=== PATIENT | male | born 1940 | race Caucasian/White ===

== ENCOUNTER → 2017-05-24 | Day surgery (SDC) | payer OTHER ==
[~2017-05-24] MED LIST: BUPIVACAINE/EPINEPHRINE 0.25% 50 ML VIAL ONE; DEXAMETHASONE SOD PHOS 4 MG/ML VIAL IV ONE; ISOSULFAN BLUE 50 MG/5 ML VIAL SQ ONE; LACTATED RINGER'S 1000 ML INJ 1,000 ML ONE; MIDAZOLAM HCL 2 MG/2 ML VIAL ONE; PROPOFOL 200 MG/20 ML AMP IV ONE; ceFAZolin 2 GM PREMIX 50 ML ONE
--- NOTE | 2017-05-24 12:21 | TN ---
cc: BERNIE HINSON DATE OF SURGERY 05/24/2017 PREOPERATIVE DIAGNOSIS 1. Thin melanoma right lateral neck. 2. Melanoma in situ right mid back. POSTOPERATIVE DIAGNOSIS 1. Thin melanoma right lateral neck. 2. Melanoma in situ right mid back. PROCEDURE 1. Wide excision of right lateral neck thin melanoma with intermediate closure of wound 2.4 cm x 5 cm. 2. Wide excision of right mid back melanoma in situ with intermediate closure of wound 2 cm x 4.5 cm. ATTENDING SURGEON Bernie Hinson MD DONOR SPECIALIST Staff ANESTHESIA General local anesthetic FINDINGS Grossly completely excised the biopsy sites with appropriate margins. INDICATIONS FOR PROCEDURE The patient is a 76-year-old male who was recently diagnosed with thin melanoma of the right lateral neck and a melanoma in situ of the right upper back. The patient was referred to surgical oncology for wide excision. The risks, benefits and alternatives to wide excision of melanoma were discussed with the patient in detail prior to the patient. The patient agreed to undergo the procedure. PROCEDURE The patient taken to the operating room, placed in the supine position and placed under general anesthesia. The patient was then placed in the left decubitus position. The right neck and back were prepped and draped in a sterile fashion. Time-out was performed. The back melanoma site was excised first. We instilled the area with local anesthetic. We incised this taking approximately a 1 cm margin 360 degrees around the biopsy site in an elliptical type fashion. We fully excised this with the 15 blade scalpel followed by Bovie electrocautery down to the fascia. This was then closed easily with a 3-0 deep dermal sutures followed by 4-0 Monocryl and Dermabond. At this poin in time, we turned our attention towards the neck. We marked this with a 1 cm margin 360 degrees around the biopsy site. We extended this into an elliptical type incision horizontally along with the skin lines with attention for cosmesis. We were able to anesthetize the area with a local anesthetic. We excised this with a 15 blade scalpel followed by Bovie electrocautery. This was marked with a stitch superior as were both specimens and for permanent pathology. We then were able to perform some undermining under the platysma layer and make very small platysmal flaps superior and inferiorly in order to facilitate a good cosmetic closure with no tension. We closed the platysma with interrupted 3-0 Vicryl sutures. We closed the skin with 4-0 Monocryl and Dermabond. We had excellent hemostasis and no complications. The patient was discontinued from the anesthesia and taken to the PACU in stable condition. I was present and scrubbed throughout the entire procedure. The patient tolerated the procedure well. MD SIL Granados/AMAN /9:17 AM /12:08 PM
== END | disposition home or self-care (01) ==
LOC: ESDC 06:46
PROVIDERS: ATTEND Surgery
DX: C43.4 Malignant melanoma of scalp and neck (principal); D03.59 Melanoma in situ of other part of trunk
CPT/HCPCS: 00300; 11606; 11626; 88305; J0690; J1100; J2250; J3010; J7120; Q9968